=== PATIENT | female | born 1945 ===

== ENCOUNTER 2021-05-01 00:29 | Inpatient (IN) ==
[2021-05-01 01:06] VITALS: BMI 23.0
--- NOTE | 2021-05-01 01:07 | DR.SOBA ---
HPI Time Seen Time Seen by Provider: 05/01/21 00:56 HPI Comment HPI Comment: A 75 y/o female presenting this morning with SOB for months. She was admitted & treated for bibasilar pneumonia 2 months ago. Her daughter informs us that she was told by her PCP recently of having CHF. She denies c/p. COVID-19 Coronavirus symptoms experienced: Shortness of Breath Reviewed Nurses Notes Reviewed: Yes Source History Provided: Patient and Family Member Duration Duration: Months Context Onset:: With Light Exertion PE Risk Factors:: None History of:: CHF Currently on:: Neither Prehospital Care:: None PMH PMH Past Surgical History: Yes Surgical History: Hysterectomy Social History Do you use any recreational Drugs:: No ROS Review of Systems Constitutional: No Symptoms Reported Eyes: No Symptoms Reported ENTM: No Symptoms Reported Respiratoy: Short of Breath Cardiovascular: No Symptoms Reported Gastrointestinal/Abdominal: No Symptoms Reported Genitourinary: No Symptoms Reported Neurological: No Symptoms Reported Musculoskeletal: No Symptoms Reported Integumentary: No Symptoms Reported Hematologic/Lymphatic: No Symptoms Reported Endocrine: No Symptoms Reported Psychiatric: No Symptoms Reported PE Vital Signs Vitals: Temperature 97.6 F Pulse Rate 90 Respiratory Rate 16 Blood Pressure [Left Arm] 167/70 Blood Pressure 145/88 O2 Sat by Pulse Oximetry 91 General Limitations: No Limitations General Appearance: Alert, In No Apparent Distress and Anxious Head Head Exam: Normal Inspection, Atraumatic and Normocephalic Eyes Eye exam: Normal Appearance and EOMI ENT ENT Exam: Normal Exam, Normal Oropharynx, Normal External Ear Exam and Mucous Membranes Moist Neck Neck Exam: Normal Inspection, Full ROM and Trachea Midline Chest Chest Inspection: Normal Inspection and Symmetric Chest Wall Rise Respiratory Respiratory Exam: Normal Lung Sounds Bilat Cardiovascular Cardiovascular Exam: Regular Rate, Normal Rhythm, Normal Heart Sounds, +S1 and +S2 Abdominal Exam Abdominal Exam: Normal Inspection, Normal Bowel Sounds and Soft Extremities Extremities Exam: Normal Inspection and Full ROM Back Back Exam: Normal Inspection and Full ROM Neurologic Neurological Exam: Alert Psychiatric Psychiatric Exam: Normal Affect and Normal Mood Skin Skin Exam: Intact COURSE Reevaluation 1st: Improved Education/Counseling Education/Counseling: Patient, Family, Education and Counseling Educated On: Treatment, Diagnosis, Prognosis and Needs for Follow Up ROR Labs Reviewed Result Diagrams: 05/01/21 01:28 05/01/21 01:28 Laboratory: WBC 9.2 X10^3/uL (3.6-10.0) 05/01/21 01:28 RBC 4.89 X10^6/uL (3.5-5.4) 05/01/21 01:28 Hgb 14.7 g/dL (12.0-16.0) 05/01/21 01:28 Hct 44.6 % (36.0-47.0) 05/01/21 01:28 MCV 91.2 fL (80.0-100.0) 05/01/21 01:28 MCH 30.2 pg (27.0-34.0) 05/01/21 01:28 MCHC 33.1 g/dL (33.0-35.0) 05/01/21 01:28 RDW 15.3 % (11.6-16.5) 05/01/21 01:28 Plt Count 161 X10^3/uL (150.0-450.0) 05/01/21 01:28 MPV 9.5 fL (7.4-11.0) 05/01/21 01:28 Neut % (Auto) 74.7 % (42.0-75.0) 05/01/21 01:28 Lymph % (Auto) 15.4 % (21.0-51.0) L 05/01/21 01:28 [place] % (Auto) 9.2 % (0.0-13.0) 05/01/21 01:28 Eos % (Auto) 0.1 % (0.9-2.9) L 05/01/21 01:28 Baso % (Auto) 0.6 % (0.2-1.0) 05/01/21 01:28 Neut # (Auto) 6.9 x10^3/uL (2.2-4.8) H 05/01/21 01:28 Lymph # (Auto) 1.4 X10^3/uL (1.3-2.9) 05/01/21 01:28 [place] # (Auto) 0.8 x10^3/uL (0.3-0.8) 05/01/21 01:28 Eos # (Auto) 0.0 x10^3/uL (0.0-0.2) 05/01/21 01:28 Baso # (Auto) 0.1 X10^3/uL (0.0-0.1) 05/01/21 01:28 Absolute Nucleated RBC 0.1 /100WBC 05/01/21 01:28 Sample Site Rr 05/01/21 00:57 ABG pH 7.460 (7.35-7.45) H 05/01/21 00:57 ABG pCO2 32.0 mmHg (35.0-45.0) L 05/01/21 00:57 ABG pO2 90.0 mmHg (80.0-100.0) 05/01/21 00:57 ABG HCO3 22.8 mmol/L (22-26) 05/01/21 00:57 ABG O2 Saturation 97.0 % (90-100) 05/01/21 00:57 ABG Base Excess -0.4 mmol/L (-2.0-2.0) 05/01/21 00:57 Cheko Test Pos 05/01/21 00:57 A-a Gradient 70.0 mmHg 05/01/21 00:57 FiO2 28.0 05/01/21 00:57 Blood Gas Comments Marv well sw 05/01/21 00:57 Sodium 141 mmol/L (136-145) 05/01/21 01:28 Corrected Sodium 144 mmol/L (136-145) 05/01/21 01:28 Potassium 3.9 mmol/L (3.5-5.1) 05/01/21 01:28 Chloride 105 mmol/L (98-107) 05/01/21 01:28 Carbon Dioxide 23.4 mmol/L (21-32) 05/01/21 01:28 BUN 34 mg/dL (7-18) H 05/01/21 01:28 Creatinine 1.23 mg/dL (0.55-1.02) H 05/01/21 01:28 Est GFR (MDRD) Af Amer 55 (>60) L 05/01/21 01:28 Est GFR (MDRD) Non-Af 45 (>60) L 05/01/21 01:28 Glucose 205 mg/dL (65-99) H 05/01/21 01:28 Calcium 8.9 mg/dL (8.5-10.1) 05/01/21 01:28 Corrected Calcium 9.6 mg/dL (8.5-10.1) 05/01/21 01:28 Total Bilirubin 0.80 mg/dL (0.2-1.0) 05/01/21 01:28 AST 17 Units/L (15-37) 05/01/21 01:28 ALT 19 Units/L (12-78) 05/01/21 01:28 Alkaline Phosphatase 67 Units/L (46-116) 05/01/21 01:28 Creatine Kinase 58 Units/L (26-192) 05/01/21 01:28 CK-MB (CK-2) 2.8 ng/mL (0-4.0) 05/01/21 01:28 CK/CKMB % Calc 4.8 % (<4) 05/01/21 01:28 Troponin I 0.02 ng/mL (0-1.5) 05/01/21 01:28 Total Protein 6.9 g/dL (6.4-8.2) 05/01/21 01:28 Albumin 3.1 g/dL (3.4-5.0) L 05/01/21 01:28 Globulin 3.8 g/dL (2.5-4.5) 05/01/21 01:28 Albumin/Globulin Ratio 0.8 Ratio (1.1-2.1) L 05/01/21 01:28 XRAY XRAY Interpreted by: Self X-ray Results: CXR: Cardiomegaly, RML/RLL infiltrate. Radiology report is pending. EKG Rate: 92 [place]: Normal Rhythm: NSR Block: None Hypertrophy: LAE ST: Normal Opioid Opioid Risk Tool Total: 0 Total Score Risk Category: Low Risk Copyright: [facility] predicting aberrant behaviors Diagnosis Discharge Problem: Lobar pneumonia Dyspnea Qualifiers: Dyspnea type: dyspnea on exertion Qualified Code(s): R06.00 - Dyspnea, unspecified Congestive heart failure Qualifiers: Heart failure type: unspecified Heart failure chronicity: acute on chronic Qualified Code(s): I50.9 - Heart failure, unspecified ADDITIONAL NOTES Additional Notes Additional Notes: Name: FELICIA JACOBSEN AAcct#: [id number]: [id number] : 1945Sex: FLocation: ER Order Number(s): [id number](s):CHEST, 1 VIEW Ordering Physician: MONICA SMITH Primary Care: José Miguel Doherty Service Date: 05/01/21 Service Time: 56 STUDY: FRONTAL VIEW CHEST COMPARISON: February 28, 2021 HISTORY: SOB FINDINGS: Slight progressively worsening alveolar airspace disease is seen in the right lower lung zone. Tiny small left pleural effusion and small right pleural effusion remains unchanged from prior study. The heart size is within normal limits. The mediastinum is unremarkable. There is no gross evidence of pneumothorax. The trachea is midline. IMPRESSION: Slight progressively worsening alveolar airspace disease is seen in the right lower lung zone. Tiny small left pleural effusion and small right pleural effusion remains unchanged from prior study. Electronically signed by: Julian Damon (May 01, 2021 03:11:16) Report Electronically signed: 05/01/21 0313 CC: Neno Smith
[2021-05-01 01:13] LABS: ABG BASE EXCESS -0.4 mmol/L (-2.0-2.0); ABG HCO3 22.8 mmol/L (22-26)
[2021-05-01 01:14] LABS: ABG ALLEN TEST POS
[2021-05-01] MEDS ORDERED: PROVENTIL NEB TX 0.083% 2.5MG/ 3ML NEB ONE (01:39)
[2021-05-01] MEDS ORDERED: LASIX PO ONE (01:40)
[2021-05-01] MEDS ORDERED: PROVENTIL NEB TX 0.083% 2.5MG/ 3ML ONE (01:47)
[2021-05-01 01:50] LABS: BASOPHILS # (AUTO) 0.1 X10^3/uL (0.0-0.1); BASOPHILS % (AUTO) 0.6 % (0.2-1.0); EOSINOPHILS % (AUTO) 0.1 % (0.9-2.9); HEMATOCRIT 44.6 % (36.0-47.0); HEMOGLOBIN 14.7 g/dL (12.0-16.0); LYMPHOCYTES # (AUTO) 1.4 X10^3/uL (1.3-2.9); LYMPHOCYTES % (AUTO) 15.4 % (21.0-51.0); MEAN CORPUSCULAR HEMOGLOBIN 30.2 pg (27.0-34.0); MEAN CORPUSCULAR HGB CONC 33.1 g/dL (33.0-35.0); MEAN CORPUSCULAR VOLUME 91.2 fL (80.0-100.0); MEAN PLATELET VOLUME 9.5 fL (7.4-11.0); MONOCYTES # (AUTO) 0.8 x10^3/uL (0.3-0.8); MONOCYTES % (AUTO) 9.2 % (0.0-13.0); NEUTROPHILS # (AUTO) 6.9 x10^3/uL (2.2-4.8); NEUTROPHILS % (AUTO) 74.7 % (42.0-75.0); PLATELET COUNT 161 X10^3/uL (150.0-450.0); RED BLOOD COUNT 4.89 X10^6/uL (3.5-5.4); RED CELL DISTRIBUTION WIDTH 15.3 % (11.6-16.5); WHITE BLOOD COUNT 9.2 X10^3/uL (3.6-10.0)
[2021-05-01] MEDS ORDERED: LASIX ONE (02:00)
[2021-05-01 02:02] LABS: ALBUMIN 3.1 g/dL (3.4-5.0); CALCIUM 8.9 mg/dL (8.5-10.1); CARBON DIOXIDE 23.4 mmol/L (21-32); CKMB % 4.8 % (<4); COR CA(FOR HYPOALB) 9.6 mg/dL (8.5-10.1); CREATINE KINASE MB 2.8 ng/mL (0-4.0); CREATININE 1.23 mg/dL (0.55-1.02); TOTAL PROTEIN 6.9 g/dL (6.4-8.2); TROPONIN I 0.02 ng/mL (0-1.5)
[2021-05-01] MEDS ORDERED: LEVAQUIN TAB 500 MG PO STA (02:43)
[2021-05-01] MEDS ORDERED: LEVAQUIN TAB 500 MG ONE (02:44)
--- NOTE | 2021-05-01 03:13 | RAD ---
STUDY: FRONTAL VIEW CHESTCOMPARISON: February 28, 2021HISTORY: SOBFINDINGS:Slight progressively worsening alveolar airspace disease is seen in the right lower lung zone. Tiny small left pleural effusion and small right pleural effusion remains unchanged from prior study.The heart size is within normal limits.The mediastinum is unremarkable.There is no gross evidence of pneumothorax.The trachea is midline.IMPRESSION:Slight progressively worsening alveolar airspace disease is seen in the right lower lung zone. Tiny small left pleural effusion and small right pleural effusion remains unchanged from prior study.Electronically signed by: Julian Damon (May 01, 2021 03:11:16)
[2021-05-01 04:11] LABS: BILIRUBIN,URINE NEGATIVE (NEGATIVE); BLOOD/HEMOGLOBIN,URINE 4+ (NEGATIVE); GLUCOSE, URINE NEGATIVE (NEGATIVE); KETONES,URINE NEGATIVE (NEGATIVE); LEUKOCYTE ESTERASE ,URINE NEGATIVE (NEGATIVE); NITRITES,URINE NEGATIVE (NEGATIVE); PROTEIN,URINE 2+ (NEGATIVE); UROBILINOGEN,URINE NORMAL (NORMAL)
[2021-05-01 04:15] LABS: APPEARANCE,URINE HAZY (CLEAR); COLOR,URINE YELLOW (YELLOW)
[2021-05-01] MEDS ORDERED: SALINE 3% 15 ML NEB TX ONE (04:34)
[2021-05-01] MEDS ORDERED: XOPENEX 1.25 MG/3 ML NEBULE NEB ONE (04:57)
[2021-05-01] MEDS ORDERED: NS 1/2 1,000 ML IV 1,000 ML IV SCH (05:00)
[2021-05-01] MEDS ORDERED: TYLENOL 325 MG TAB PO PRN (05:00)
[2021-05-01] MEDS ORDERED: NICOTINE PATCH TD ONE (05:18)
[2021-05-01] MEDS ORDERED: NS 1/2 1,000 ML IV 1,000 ML IV ONE (05:19)
[2021-05-01 05:36] LABS: BASOPHILS % (AUTO) 0.4 % (0.2-1.0); EOSINOPHILS % (AUTO) 0.4 % (0.9-2.9); HEMATOCRIT 45.8 % (36.0-47.0); HEMOGLOBIN 14.8 g/dL (12.0-16.0); LYMPHOCYTES # (AUTO) 1.2 X10^3/uL (1.3-2.9); LYMPHOCYTES % (AUTO) 11.9 % (21.0-51.0); MEAN CORPUSCULAR HEMOGLOBIN 29.6 pg (27.0-34.0); MEAN CORPUSCULAR HGB CONC 32.4 g/dL (33.0-35.0); MEAN CORPUSCULAR VOLUME 91.3 fL (80.0-100.0); MEAN PLATELET VOLUME 9.3 fL (7.4-11.0); MONOCYTES # (AUTO) 0.8 x10^3/uL (0.3-0.8); MONOCYTES % (AUTO) 8.1 % (0.0-13.0); NEUTROPHILS # (AUTO) 7.9 x10^3/uL (2.2-4.8); NEUTROPHILS % (AUTO) 79.2 % (42.0-75.0); PLATELET COUNT 166 X10^3/uL (150.0-450.0); RED BLOOD COUNT 5.02 X10^6/uL (3.5-5.4); RED CELL DISTRIBUTION WIDTH 15.7 % (11.6-16.5); WHITE BLOOD COUNT 9.9 X10^3/uL (3.6-10.0)
[2021-05-01] MEDS: DUONEB 0.5 MG/3 MG (3 mL) NEB SCH ×3 (05:40→17:10)
[2021-05-01 05:44] LABS: ALBUMIN 3.2 g/dL (3.4-5.0); CALCIUM 8.9 mg/dL (8.5-10.1); CARBON DIOXIDE 27.1 mmol/L (21-32); COR CA(FOR HYPOALB) 9.5 mg/dL (8.5-10.1); CREATININE 1.28 mg/dL (0.55-1.02); TOTAL PROTEIN 7.2 g/dL (6.4-8.2)
[2021-05-01] MEDS ORDERED: SALINE 3% 15 ML NEB TX NEB ONE (05:45)
[2021-05-01] MEDS: NICOTINE PATCH TD SCH (05:52)
[2021-05-01] MEDS ORDERED: LEVAQUIN TAB 500 MG PO SCH (09:00)
[2021-05-01 09:55] LABS: CKMB % 6.4 % (<4); CREATINE KINASE 55 Units/L (26-192); CREATINE KINASE MB 3.5 ng/mL (0-4.0); TROPONIN I < 0.02 ng/mL (0-1.5)
[2021-05-01] MEDS: K-DUR TAB 20 MEQ PO SCH (10:00)
[2021-05-01] MEDS: VSL#3 PO SCH (10:00)
[2021-05-01] MEDS: LASIX IVP SCH (10:00)
--- NOTE | 2021-05-01 10:19 | CT ---
HISTORYCONFUSION, HALLUCINATIONS, LETHARGYSTUDYBRAIN W/O CONCOMPARISONNoneTECHNIQUEMultiple CT axial images of the head were obtained without IV contrast. Coronal and sagittal images were reconstructed. Dose reduction techniques included Automated Exposure Control (AEC) and adjustment of mA and kV.FINDINGSAge-related findings include central and cortical atrophy with areas of low density in the periventricular white matter compatible with micro-ischemic changes.Otherwise mcnamara and white matter have normal differentiation. There is no mass, shift, or hemorrhage. Cerebellar tonsils are at an appropriate level.No fluid in the sinuses or mucosal thickening to suggest sinusitis. There is no mastoid effusion.IMPRESSION1. No acute findingElectronically signed by: Brenden Reddy (May 01, 2021 10:17:22)
[2021-05-01] MEDS: ROBITUSSIN DM PO SCH ×4 (11:16→20:23)
--- NOTE | 2021-05-01 13:17 | DR.H&P ---
H&P History & Physical for Day of: H&P Date: 05/01/21 Chief Complaint Chief Complaint: worsening dyspnea, confusion Allergies Allergies Allergy/AdvReac Type Severity Reaction Status Date / Time No Known Drug Allergies Allergy Verified 02/28/21 23:04 History of Present Illness History of Present Illness: Ms. Davila is a 75y/o female who was recently seen in clinic 2 days ago to establish care. She has not seen a PCP in over 10 years. Outpatient work up was ordered to address fluid overload and leg edema. Her prescription for lasix was sent to the pharmacy but patient did not pick it up. Patient states she felt very SOB yesterday and had to be brought to the ER. Daughter states patient was also confused yesterday and does not recall her coming to the house. Denies any fall or injuries. She is awake and alert this morning. She is on 2L O2. ED work-up - Labs and imaging reviewed. Patient was admitted for acute CHF exacerbation and pneumonia. She was given IV lasix and levaquin along with nebs. Plan: Continue IV lasix and Levaquin. Continue nebs. Strict I&Os. Daily weights. Will repeat another cardiac profile. Order Echo and b/l LE U/S to rule out PE. Patient has been immobile for a while. Order CT-head due to confusion. Change diet to cardiac. Add SSI for hyperglycemia. Add Lovenox for DVT PPx. Wean O2 as tolerated. PT/OT as tolerated. Past Medical History Past Medical History: CHF, COPD and Diabetes Past Surgical History Surgical History: Hysterectomy Family History Family Medical History: Diabetes Mellitus, Cancer, IA and Hypertension Social History Does patient currently use any type of tobacco product: Yes Have you used tobacco products in the last 12 months: Yes Type of Tobacco Use: Cigarettes Packs per day or dips/chews per day: 1 Does any household member use tobacco: No Alcohol Use: None Drug Use: None Prescription drug monitoring program results: PDMP reviewed and no concerns identified Medications Home Medications: No Known Drug Allergies Allergy (Verified 02/28/21 23:04) CONTINUE taking the following medications furosemide 40 mg PO DAILY 05/01/21 [History] pantoprazole 40 mg PO DAILY 05/01/21 [History] Labs Result Diagrams: 05/01/21 05:20 05/01/21 05:20 Labs: Laboratory WBC 9.9 X10^3/uL (3.6-10.0) 05/01/21 05:20 RBC 5.02 X10^6/uL (3.5-5.4) 05/01/21 05:20 Hgb 14.8 g/dL (12.0-16.0) 05/01/21 05:20 Hct 45.8 % (36.0-47.0) 05/01/21 05:20 MCV 91.3 fL (80.0-100.0) 05/01/21 05:20 MCH 29.6 pg (27.0-34.0) 05/01/21 05:20 MCHC 32.4 g/dL (33.0-35.0) L 05/01/21 05:20 RDW 15.7 % (11.6-16.5) 05/01/21 05:20 Plt Count 166 X10^3/uL (150.0-450.0) 05/01/21 05:20 MPV 9.3 fL (7.4-11.0) 05/01/21 05:20 Neut % (Auto) 79.2 % (42.0-75.0) H 05/01/21 05:20 Lymph % (Auto) 11.9 % (21.0-51.0) L 05/01/21 05:20 [place] % (Auto) 8.1 % (0.0-13.0) 05/01/21 05:20 Eos % (Auto) 0.4 % (0.9-2.9) L 05/01/21 05:20 Baso % (Auto) 0.4 % (0.2-1.0) 05/01/21 05:20 Neut # (Auto) 7.9 x10^3/uL (2.2-4.8) H 05/01/21 05:20 Lymph # (Auto) 1.2 X10^3/uL (1.3-2.9) L 05/01/21 05:20 [place] # (Auto) 0.8 x10^3/uL (0.3-0.8) 05/01/21 05:20 Eos # (Auto) 0.0 x10^3/uL (0.0-0.2) 05/01/21 05:20 Baso # (Auto) 0.0 X10^3/uL (0.0-0.1) 05/01/21 05:20 Absolute Nucleated RBC 0.1 /100WBC 05/01/21 05:20 Sample Site Rr 05/01/21 00:57 ABG pH 7.460 (7.35-7.45) H 05/01/21 00:57 ABG pCO2 32.0 mmHg (35.0-45.0) L 05/01/21 00:57 ABG pO2 90.0 mmHg (80.0-100.0) 05/01/21 00:57 ABG HCO3 22.8 mmol/L (22-26) 05/01/21 00:57 ABG O2 Saturation 97.0 % (90-100) 05/01/21 00:57 ABG Base Excess -0.4 mmol/L (-2.0-2.0) 05/01/21 00:57 Cheko Test Pos 05/01/21 00:57 A-a Gradient 70.0 mmHg 05/01/21 00:57 FiO2 28.0 05/01/21 00:57 Blood Gas Comments Marv well sw 05/01/21 00:57 Sodium 141 mmol/L (136-145) 05/01/21 05:20 Corrected Sodium 142 mmol/L (136-145) 05/01/21 05:20 Potassium 4.0 mmol/L (3.5-5.1) 05/01/21 05:20 Chloride 104 mmol/L (98-107) 05/01/21 05:20 Carbon Dioxide 27.1 mmol/L (21-32) 05/01/21 05:20 BUN 33 mg/dL (7-18) H 05/01/21 05:20 Creatinine 1.28 mg/dL (0.55-1.02) H 05/01/21 05:20 Est GFR (MDRD) Af Amer 53 (>60) L 05/01/21 05:20 Est GFR (MDRD) Non-Af 43 (>60) L 05/01/21 05:20 Glucose 157 mg/dL (65-99) H 05/01/21 05:20 POC Glucose (mg/dL) 188 mg/dL (65-99) H 05/01/21 12:12 Calcium 8.9 mg/dL (8.5-10.1) 05/01/21 05:20 Corrected Calcium 9.5 mg/dL (8.5-10.1) 05/01/21 05:20 Total Bilirubin 1.00 mg/dL (0.2-1.0) 05/01/21 05:20 AST 18 Units/L (15-37) 05/01/21 05:20 ALT 18 Units/L (12-78) 05/01/21 05:20 Alkaline Phosphatase 71 Units/L (46-116) 05/01/21 05:20 Creatine Kinase 55 Units/L (26-192) 05/01/21 09:22 CK-MB (CK-2) 3.5 ng/mL (0-4.0) 05/01/21 09:22 CK/CKMB % Calc 6.4 % (<4) 05/01/21 09:22 Troponin I < 0.02 ng/mL (0-1.5) 05/01/21 09:22 Total Protein 7.2 g/dL (6.4-8.2) 05/01/21 05:20 Albumin 3.2 g/dL (3.4-5.0) L 05/01/21 05:20 Globulin 4.0 g/dL (2.5-4.5) 05/01/21 05:20 Albumin/Globulin Ratio 0.8 Ratio (1.1-2.1) L 05/01/21 05:20 Specimen Type Catherized urine 05/01/21 03:30 Urine Color Yellow (YELLOW) 05/01/21 03:30 Urine Appearance Hazy (CLEAR) 05/01/21 03:30 Urine pH 5.0 (5.0 - 8.0) 05/01/21 03:30 Ur Specific [place] 1.015 (1.000-1.030) 05/01/21 03:30 Urine Protein 2+ (NEGATIVE) 05/01/21 03:30 Urine Glucose (UA) Negative (NEGATIVE) 05/01/21 03:30 Urine Ketones Negative (NEGATIVE) 05/01/21 03:30 Urine Occult Blood 4+ (NEGATIVE) 05/01/21 03:30 Urine Nitrite Negative (NEGATIVE) 05/01/21 03:30 Urine Bilirubin Negative (NEGATIVE) 05/01/21 03:30 Urine Urobilinogen Normal (NORMAL) 05/01/21 03:30 Ur Leukocyte Esterase Negative (NEGATIVE) 05/01/21 03:30 SARS CoV-2 RNA Rapid AMMON Negative (NEGATIVE) 05/01/21 03:35 Review of Systems Constitutional: Weakness and Malaise Eyes: No Symptoms Reported ENT: No Symptoms Reported Respiratory: Cough, Shortness of Breath and SOB with Excertion Cardiovascular: Edema Gastrointestinal: No Symptoms Reported Genitourinary: No Symptoms Reported Musculoskeletal: Leg Pain Skin: No Symptoms Reported Neurological: Confusion Physical Exam Vital Signs: Temperature 97.8 F Pulse Rate [Left Radial] 95 Pulse Rate 84 Respiratory Rate 26 Blood Pressure [Left Arm] 128/60 Blood Pressure 138/85 O2 Sat by Pulse Oximetry 92 Oriented: Normal Eyes: Normal Ear: Normal Nose: Normal Throat: Normal Respiratory: Diminished Throughout, RLL Rales and LLL Rales Cardiovascular: Normal and Edema (b/l LE 2+ pitting edema, erythematous ) Auscultation: Bowel Sounds: Normal Palpation: Normal Tenderness: Normal Skin: Wound Psychiatric: Normal Mood Description: Calm Affect: Normal Speech Pattern: Clear and Appropriate Assessment/Plan (1) Lobar pneumonia: Status: Acute (2) Acute exacerbation of CHF (congestive heart failure): Qualifiers: Heart failure type: unspecified Qualified Code(s): I50.9 - Heart failure, unspecified Status: Acute (3) Leg swelling: Status: Acute (4) Immobility: Status: Acute (5) Confusion: Status: Acute (6) Diabetes: Qualifiers: Diabetes mellitus complication status: with other specified complication 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
[2021-05-01] MEDS: LOVENOX INJ 30 MG SYR SC SCH (13:35)
--- NOTE | 2021-05-01 14:06 | VAS ---
HISTORYLeg edema and rednessSTUDYDuplex venous ultrasound of the bilateral lower extremitiesCOMPARISONNoneTECHNIQUEMultip le mcnamara scale and color flow Doppler images of the deep venous system were obtained of the right and left lower extremity.FINDINGSThe deep venous system of the right and left lower extremities were evaluated from the level of the common femoral vein through the posterior tibial vein. Normal color flow and augmentation can be observed. In addition, normal compression is seen throughout the deep venous system.IMPRESSIONNegative for DVT.Electronically signed by: Butch Alvarez (May 01, 2021 14:03:18)
[2021-05-01] MEDS: LIPITOR TAB 40 MG PO SCH (20:23)
[2021-05-01] MEDS: NovoLIN R (or HumuLIN R) SC PRN (20:24)
[2021-05-02] MEDS: DUONEB 0.5 MG/3 MG (3 mL) NEB SCH ×4 (00:50→17:05)
[2021-05-02 05:00] LABS: BASOPHILS % (AUTO) 0.3 % (0.2-1.0); EOSINOPHILS # (AUTO) 0.1 x10^3/uL (0.0-0.2); EOSINOPHILS % (AUTO) 1.7 % (0.9-2.9); HEMATOCRIT 42.5 % (36.0-47.0); HEMOGLOBIN 13.7 g/dL (12.0-16.0); LYMPHOCYTES # (AUTO) 1.4 X10^3/uL (1.3-2.9); LYMPHOCYTES % (AUTO) 17.3 % (21.0-51.0); MEAN CORPUSCULAR HEMOGLOBIN 29.6 pg (27.0-34.0); MEAN CORPUSCULAR HGB CONC 32.2 g/dL (33.0-35.0); MEAN CORPUSCULAR VOLUME 92.2 fL (80.0-100.0); MEAN PLATELET VOLUME 9.6 fL (7.4-11.0); MONOCYTES # (AUTO) 0.7 x10^3/uL (0.3-0.8); MONOCYTES % (AUTO) 8.9 % (0.0-13.0); NEUTROPHILS # (AUTO) 5.9 x10^3/uL (2.2-4.8); NEUTROPHILS % (AUTO) 71.8 % (42.0-75.0); PLATELET COUNT 152 X10^3/uL (150.0-450.0); RED BLOOD COUNT 4.61 X10^6/uL (3.5-5.4); RED CELL DISTRIBUTION WIDTH 15.4 % (11.6-16.5); WHITE BLOOD COUNT 8.3 X10^3/uL (3.6-10.0)
[2021-05-02 05:07] LABS: BLOOD UREA NITROGEN 32 mg/dL (7-18); CARBON DIOXIDE 28.5 mmol/L (21-32); CHLORIDE 106 mmol/L (98-107); COR NA(FOR HYPERGLY) 143 mmol/L (136-145); CREATININE 1.08 mg/dL (0.55-1.02); MAGNESIUM 2.3 mg/dL (1.7-2.9); SODIUM 141 mmol/L (136-145); eGFR NON BLACK RACES 53 (>60)
[2021-05-02] MEDS: GLUCOPHAGE XR 24-HR PO SCH (09:34)
[2021-05-02] MEDS: ASPIRIN EC 81 MG PO SCH (09:34)
[2021-05-02] MEDS: NICOTINE PATCH TD SCH (09:35)
[2021-05-02] MEDS: K-DUR TAB 20 MEQ PO SCH (09:35)
[2021-05-02] MEDS: LOVENOX INJ 30 MG SYR SC SCH (09:35)
[2021-05-02] MEDS: LASIX IVP SCH (09:35)
[2021-05-02] MEDS: VSL#3 PO SCH (09:36)
[2021-05-02] MEDS: ROBITUSSIN DM PO SCH ×4 (09:36→21:15)
--- NOTE | 2021-05-02 10:54 | PCM.PROG ---
Progress Note Progress Note for Day of Date of Exam: 05/02/21 Subjective Subjective: Patient seen at bedside, no acute overnight events. She states she feels better. She is still on 2L NC. She does not recall working with PT yesterday. She did not get out of bed. Patient is extremely weak and not able to ambulate much. She will likely need rehab placement. Patient understands and willing to go to rehab if needed. Labs reviewed Imaging reviewed: CT-head: no acute process, chronic micro-ischemic changes. U/S BL LE: (-) for DVT Echo: EF 40% Plan: wean O2 as tolerated, PT/OT for a complete assessment. Initiate bladder training to remove herrera. Continue IV lasix and abx. Continue nebs. Add metformin 500 mg daily and metoprolol succinate 25 mg daily. Strict I/Os, daily weight. CM to work on placement as needed. Monitor AM labs and imaging. Past Medical Family Social History Past Med/Fam/Surg Hx: No changes since H&P Allergies: Allergies No Known Drug Allergies Allergy (Verified 02/28/21 23:04) Vital Signs and I&O's Vital Signs: Temperature 98.4 F Pulse Rate [Left Radial] 93 Pulse Rate 97 Respiratory Rate 20 Blood Pressure [Left Arm] 138/61 Blood Pressure 138/85 O2 Sat by Pulse Oximetry 95 Intake and Output: Intake & Output 04/29/21 04/30/21 05/01/21 05/02/21 23:59 23:59 23:59 23:59 Intake Total 615 / 615 815 / 815 Output Total 2600 / 2600 1150 / 1150 Balance -1984 / -1984 -335 / -335 Physical Exam Oriented: Normal Eyes: Normal Ear: Normal Nose: Normal Throat: Normal Respiratory: Generalized and Diminished Cardiovascular: Normal and Edema (improved LE edema ) Auscultation: Bowel Sounds: Normal Tenderness: Normal Skin: Wound Musculoskeletal: Normal Psychiatric: Normal Mood Description: Calm Affect: Normal Speech Pattern: Clear and Appropriate Laboratory and Diagnostics Result Diagrams: 05/02/21 04:00 05/02/21 04:00 Labs: 05/01/21 03:30 Urine,Clean Catch Urine Culture - Final Laboratory WBC 8.3 X10^3/uL (3.6-10.0) 05/02/21 04:00 RBC 4.61 X10^6/uL (3.5-5.4) 05/02/21 04:00 Hgb 13.7 g/dL (12.0-16.0) 05/02/21 04:00 Hct 42.5 % (36.0-47.0) 05/02/21 04:00 MCV 92.2 fL (80.0-100.0) 05/02/21 04:00 MCH 29.6 pg (27.0-34.0) 05/02/21 04:00 MCHC 32.2 g/dL (33.0-35.0) L 05/02/21 04:00 RDW 15.4 % (11.6-16.5) 05/02/21 04:00 Plt Count 152 X10^3/uL (150.0-450.0) 05/02/21 04:00 MPV 9.6 fL (7.4-11.0) 05/02/21 04:00 Neut % (Auto) 71.8 % (42.0-75.0) 05/02/21 04:00 Lymph % (Auto) 17.3 % (21.0-51.0) L 05/02/21 04:00 [place] % (Auto) 8.9 % (0.0-13.0) 05/02/21 04:00 Eos % (Auto) 1.7 % (0.9-2.9) 05/02/21 04:00 Baso % (Auto) 0.3 % (0.2-1.0) 05/02/21 04:00 Neut # (Auto) 5.9 x10^3/uL (2.2-4.8) H 05/02/21 04:00 Lymph # (Auto) 1.4 X10^3/uL (1.3-2.9) 05/02/21 04:00 [place] # (Auto) 0.7 x10^3/uL (0.3-0.8) 05/02/21 04:00 Eos # (Auto) 0.1 x10^3/uL (0.0-0.2) 05/02/21 04:00 Baso # (Auto) 0.0 X10^3/uL (0.0-0.1) 05/02/21 04:00 Absolute Nucleated RBC 0.2 /100WBC 05/02/21 04:00 Sample Site Rr 05/01/21 00:57 ABG pH 7.460 (7.35-7.45) H 05/01/21 00:57 ABG pCO2 32.0 mmHg (35.0-45.0) L 05/01/21 00:57 ABG pO2 90.0 mmHg (80.0-100.0) 05/01/21 00:57 ABG HCO3 22.8 mmol/L (22-26) 05/01/21 00:57 ABG O2 Saturation 97.0 % (90-100) 05/01/21 00:57 ABG Base Excess -0.4 mmol/L (-2.0-2.0) 05/01/21 00:57 Cheko Test Pos 05/01/21 00:57 A-a Gradient 70.0 mmHg 05/01/21 00:57 FiO2 28.0 05/01/21 00:57 Blood Gas Comments Marv well sw 05/01/21 00:57 Sodium 141 mmol/L (136-145) 05/02/21 04:00 Corrected Sodium 143 mmol/L (136-145) 05/02/21 04:00 Potassium 3.6 mmol/L (3.5-5.1) 05/02/21 04:00 Chloride 106 mmol/L (98-107) 05/02/21 04:00 Carbon Dioxide 28.5 mmol/L (21-32) 05/02/21 04:00 BUN 32 mg/dL (7-18) H 05/02/21 04:00 Creatinine 1.08 mg/dL (0.55-1.02) H 05/02/21 04:00 Est GFR (MDRD) Af Amer > 60 (>60) 05/02/21 04:00 Est GFR (MDRD) Non-Af 53 (>60) L 05/02/21 04:00 Glucose 176 mg/dL (65-99) H 05/02/21 04:00 POC Glucose (mg/dL) 219 mg/dL (65-99) H 05/01/21 19:57 Calcium 8.0 mg/dL (8.5-10.1) L 05/02/21 04:00 Corrected Calcium 9.5 mg/dL (8.5-10.1) 05/01/21 05:20 Magnesium 2.3 mg/dL (1.7-2.9) 05/02/21 04:00 Total Bilirubin 1.00 mg/dL (0.2-1.0) 05/01/21 05:20 AST 18 Units/L (15-37) 05/01/21 05:20 ALT 18 Units/L (12-78) 05/01/21 05:20 Alkaline Phosphatase 71 Units/L (46-116) 05/01/21 05:20 Creatine Kinase 55 Units/L (26-192) 05/01/21 09:22 CK-MB (CK-2) 3.5 ng/mL (0-4.0) 05/01/21 09:22 CK/CKMB % Calc 6.4 % (<4) 05/01/21 09:22 Troponin I < 0.02 ng/mL (0-1.5) 05/01/21 09:22 Total Protein 7.2 g/dL (6.4-8.2) 05/01/21 05:20 Albumin 3.2 g/dL (3.4-5.0) L 05/01/21 05:20 Globulin 4.0 g/dL (2.5-4.5) 05/01/21 05:20 Albumin/Globulin Ratio 0.8 Ratio (1.1-2.1) L 05/01/21 05:20 Specimen Type Catherized urine 05/01/21 03:30 Urine Color Yellow (YELLOW) 05/01/21 03:30 Urine Appearance Hazy (CLEAR) 05/01/21 03:30 Urine pH 5.0 (5.0 - 8.0) 05/01/21 03:30 Ur Specific [place] 1.015 (1.000-1.030) 05/01/21 03:30 Urine Protein 2+ (NEGATIVE) 05/01/21 03:30 Urine Glucose (UA) Negative (NEGATIVE) 05/01/21 03:30 Urine Ketones Negative (NEGATIVE) 05/01/21 03:30 Urine Occult Blood 4+ (NEGATIVE) 05/01/21 03:30 Urine Nitrite Negative (NEGATIVE) 05/01/21 03:30 Urine Bilirubin Negative (NEGATIVE) 05/01/21 03:30 Urine Urobilinogen Normal (NORMAL) 05/01/21 03:30 Ur Leukocyte Esterase Negative (NEGATIVE) 05/01/21 03:30 SARS CoV-2 RNA Rapid AMMON Negative (NEGATIVE) 05/01/21 03:35 Plan (1) Lobar pneumonia: Status: Acute (2) Acute exacerbation of CHF (congestive heart failure): Status: Acute Qualifiers: Heart failure type: unspecified Qualified Code(s): I50.9 - Heart failure, unspecified (3) Leg swelling: Status: Acute (4) Immobility: Status: Acute (5) Confusion: Status: Acute (6) Diabetes: Status: Acute Qualifiers: Diabetes mellitus complication status: with other specified complication 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
[2021-05-02] MEDS: TOPROL XL PO SCH (11:15)
[2021-05-02] MEDS: LIPITOR TAB 40 MG PO SCH (21:15)
[2021-05-02] MEDS: LEVAQUIN PREMIX IV 750 MG 750 MG/150 ML BAG IV SCH (21:15)
[2021-05-03] MEDS: DUONEB 0.5 MG/3 MG (3 mL) NEB SCH ×4 (00:17→17:21)
--- NOTE | 2021-05-03 06:18 | RAD ---
HISTORYSOB HX: TIA, CHF, COPD SX: HYSTERECTOMYSTUDYCHEST, 1 [id number] trachea is midline. There is stable moderate cardiomegaly.There is persistent bibasal radiopacities right more than left with effacement of the diaphragms. The right midlung zone radiopacities are slightly denser than on prior study. There is no evidence of pneumothorax with some skin folds in the posterior aspect of the upper lobes. Possible right trace effusion.IMPRESSIONStable moderate cardiomegaly. Persistent bibasal radiopacities right more than left with increase density in the radiopacity in the right midlung zone.Electronically signed by: Bethany Avila (May 03, 2021 06:17:18)
[2021-05-03 06:38] LABS: BASOPHILS % (AUTO) 0.4 % (0.2-1.0); EOSINOPHILS # (AUTO) 0.1 x10^3/uL (0.0-0.2); EOSINOPHILS % (AUTO) 1.5 % (0.9-2.9); HEMATOCRIT 41.3 % (36.0-47.0); HEMOGLOBIN 13.6 g/dL (12.0-16.0); LYMPHOCYTES # (AUTO) 1.2 X10^3/uL (1.3-2.9); LYMPHOCYTES % (AUTO) 15.4 % (21.0-51.0); MEAN CORPUSCULAR HEMOGLOBIN 29.8 pg (27.0-34.0); MEAN CORPUSCULAR HGB CONC 32.8 g/dL (33.0-35.0); MEAN CORPUSCULAR VOLUME 90.9 fL (80.0-100.0); MEAN PLATELET VOLUME 9.4 fL (7.4-11.0); MONOCYTES # (AUTO) 0.7 x10^3/uL (0.3-0.8); MONOCYTES % (AUTO) 9.6 % (0.0-13.0); NEUTROPHILS # (AUTO) 5.5 x10^3/uL (2.2-4.8); NEUTROPHILS % (AUTO) 73.1 % (42.0-75.0); PLATELET COUNT 158 X10^3/uL (150.0-450.0); RED BLOOD COUNT 4.55 X10^6/uL (3.5-5.4); RED CELL DISTRIBUTION WIDTH 15.2 % (11.6-16.5); WHITE BLOOD COUNT 7.5 X10^3/uL (3.6-10.0)
[2021-05-03 06:49] LABS: ALANINE AMINOTRANSFERASE 21 Units/L (12-78); ALBUMIN 2.6 g/dL (3.4-5.0); ALKALINE PHOSPHATASE 70 Units/L (46-116); ASPARTATE AMINO TRANSFERASE 16 Units/L (15-37); BLOOD UREA NITROGEN 27 mg/dL (7-18); CHLORIDE 105 mmol/L (98-107); COR CA(FOR HYPOALB) 9.1 mg/dL (8.5-10.1); COR NA(FOR HYPERGLY) 142 mmol/L (136-145); CREATININE 0.93 mg/dL (0.55-1.02); SODIUM 141 mmol/L (136-145); TOTAL PROTEIN 6.3 g/dL (6.4-8.2); eGFR NON BLACK RACES > 60 (>60)
[2021-05-03] MEDS: LASIX IVP SCH (09:00)
[2021-05-03] MEDS: K-DUR TAB 20 MEQ PO SCH (09:00)
[2021-05-03] MEDS: GLUCOPHAGE XR 24-HR PO SCH (09:00)
[2021-05-03] MEDS: ASPIRIN EC 81 MG PO SCH (09:00)
[2021-05-03] MEDS: VSL#3 PO SCH (09:01)
[2021-05-03] MEDS: TOPROL XL PO SCH (09:01)
[2021-05-03] MEDS: ROBITUSSIN DM PO SCH ×5 (09:01→20:41)
[2021-05-03] MEDS: NICOTINE PATCH TD SCH ×2 (09:01→09:30)
[2021-05-03] MEDS: LOVENOX INJ 30 MG SYR SC SCH (09:23)
--- NOTE | 2021-05-03 10:41 | PCM.PROG ---
Progress Note - Progress Note for Day of Date of Exam: 05/03/21 - Subjective Subjective: IS A 75 YEAR OLD W/F PATIENT OF . SHE WAS ADMITTED ON 05/01 FOR TREATMENT OF PNEUMONIA AND ACUTE EXACERBATION OF CHF. SHE HAS A HX OF CVA, COPD, DM II. TODAY, SHE IS ALERT AND ORIENTED, SITTING UP IN BED ON MORNING ROUNDS. SHE CONTINUES WITH COMPLAINTS OF WEAKNESS AND SHORTNESS OF BREATH. ON EXAMINATION, HEART IS REGULAR IN RATE AND RHYTHM. BILATERAL LUNGS ARE NOTED WITH DIMINISHED LUNG SOUNDS THROUGHOUT. ABDOMEN IS ROUND, SOFT, AND NON-TENDER WITH NORMAL BOWEL SOUNDS NOTED IN ALL QUADRANTS. TRACE BLE EDEMA NOTED. HER VITALS THIS MORNING ARE: 97.7-86-20-97%-137/60. LABS WERE OBTAINED. ABNORMAL LAB VALUES INCLUDE THE FOLLOWING: BUN 27, GLUCOSE 124, CALCIUM 8.0, T OTAL PROTEIN 6.3, ALBUMIN 2.6. CHEST XRAY REVEALED: Stable moderate cardiomegaly. Persistent bibasal radiopacities right more than left with increase density in the radiopacity in the right midlung zone. WE WILL CONTINUE WITH IV ANTIBIOTICS, NEBULIZER TREATMENTS, LOVENOX, BLOOD GLUCOSE CONTROL, AND CURRENT PLAN OF CARE TODAY. OTHERWISE, WE PLAN TO FOLLOW UP WITH AM LABS AND CONTINUE TO MONITOR. TIME SPENT ON CLINICAL ASSESSMENT, REVIEWING LABS AND IMAGING, DECISION MAKING, AND DOCUMENTATION GREATER THAN 45 MINUTES. - Past Medical Family Social History Past Med/Fam/Surg Hx: No changes since H&P Allergies: Allergies No Known Drug Allergies Allergy (Verified 02/28/21 23:04) - Review of Systems ROS: No change since H&P - Vital Signs and I&O's Vital Signs: Temperature 97.7 F Pulse Rate [Left Radial] 86 Pulse Rate 76 Respiratory Rate 20 Blood Pressure [Left Arm] 137/60 Blood Pressure 138/85 O2 Sat by Pulse Oximetry 97 Intake and Output: Intake & Output 04/30/21 05/01/21 05/02/21 05/03/21 11:59 11:59 11:59 11:59 Intake Total 125 / 125 1305 / 1305 1630 / 1630 Output Total 800 / 800 2950 / 2950 2800 / 2800 Balance -675 / -675 -1645 / -1645 -1170 / -1170 - Physical Exam Oriented: Normal Eyes: Normal Ear: Normal Nose: Normal Throat: Normal Respiratory: Generalized, Diminished Cardiovascular: Normal, Edema (improved LE edema) Auscultation: Bowel Sounds: Normal Palpation: Normal Tenderness: Normal Skin: Wound Musculoskeletal: Normal Psychiatric: Normal Mood Description: Calm Affect: Normal Speech Pattern: Clear, Appropriate - Laboratory and Diagnostics Result Diagrams: 05/03/21 05:38 05/03/21 05:38 Labs: 05/01/21 03:30 Urine,Clean Catch Urine Culture - Final Laboratory WBC 7.5 X10^3/uL (3.6-10.0) 05/03/21 05:38 RBC 4.55 X10^6/uL (3.5-5.4) 05/03/21 05:38 Hgb 13.6 g/dL (12.0-16.0) 05/03/21 05:38 Hct 41.3 % (36.0-47.0) 05/03/21 05:38 MCV 90.9 fL (80.0-100.0) 05/03/21 05:38 MCH 29.8 pg (27.0-34.0) 05/03/21 05:38 MCHC 32.8 g/dL (33.0-35.0) L 05/03/21 05:38 RDW 15.2 % (11.6-16.5) 05/03/21 05:38 Plt Count 158 X10^3/uL (150.0-450.0) 05/03/21 05:38 MPV 9.4 fL (7.4-11.0) 05/03/21 05:38 Neut % (Auto) 73.1 % (42.0-75.0) 05/03/21 05:38 Lymph % (Auto) 15.4 % (21.0-51.0) L 05/03/21 05:38 [place] % (Auto) 9.6 % (0.0-13.0) 05/03/21 05:38 Eos % (Auto) 1.5 % (0.9-2.9) 05/03/21 05:38 Baso % (Auto) 0.4 % (0.2-1.0) 05/03/21 05:38 Neut # (Auto) 5.5 x10^3/uL (2.2-4.8) H 05/03/21 05:38 Lymph # (Auto) 1.2 X10^3/uL (1.3-2.9) L 05/03/21 05:38 [place] # (Auto) 0.7 x10^3/uL (0.3-0.8) 05/03/21 05:38 Eos # (Auto) 0.1 x10^3/uL (0.0-0.2) 05/03/21 05:38 Baso # (Auto) 0.0 X10^3/uL (0.0-0.1) 05/03/21 05:38 Absolute Nucleated RBC 0.1 /100WBC 05/03/21 05:38 Sample Site Rr 05/01/21 00:57 ABG pH 7.460 (7.35-7.45) H 05/01/21 00:57 ABG pCO2 32.0 mmHg (35.0-45.0) L 05/01/21 00:57 ABG pO2 90.0 mmHg (80.0-100.0) 05/01/21 00:57 ABG HCO3 22.8 mmol/L (22-26) 05/01/21 00:57 ABG O2 Saturation 97.0 % (90-100) 05/01/21 00:57 ABG Base Excess -0.4 mmol/L (-2.0-2.0) 05/01/21 00:57 Cheko Test Pos 05/01/21 00:57 A-a Gradient 70.0 mmHg 05/01/21 00:57 FiO2 28.0 05/01/21 00:57 Blood Gas Comments Marv well sw 05/01/21 00:57 Sodium 141 mmol/L (136-145) 05/03/21 05:38 Corrected Sodium 142 mmol/L (136-145) 05/03/21 05:38 Potassium 3.8 mmol/L (3.5-5.1) 05/03/21 05:38 Chloride 105 mmol/L (98-107) 05/03/21 05:38 Carbon Dioxide 31.0 mmol/L (21-32) 05/03/21 05:38 BUN 27 mg/dL (7-18) H 05/03/21 05:38 Creatinine 0.93 mg/dL (0.55-1.02) 05/03/21 05:38 Est GFR (MDRD) Af Amer > 60 (>60) 05/03/21 05:38 Est GFR (MDRD) Non-Af > 60 (>60) 05/03/21 05:38 Glucose 124 mg/dL (65-99) H 05/03/21 05:38 POC Glucose (mg/dL) 130 mg/dL (65-99) H 05/03/21 05:13 Calcium 8.0 mg/dL (8.5-10.1) L 05/03/21 05:38 Corrected Calcium 9.1 mg/dL (8.5-10.1) 05/03/21 05:38 Magnesium 2.3 mg/dL (1.7-2.9) 05/02/21 04:00 Total Bilirubin 0.50 mg/dL (0.2-1.0) 05/03/21 05:38 AST 16 Units/L (15-37) 05/03/21 05:38 ALT 21 Units/L (12-78) 05/03/21 05:38 Alkaline Phosphatase 70 Units/L (46-116) 05/03/21 05:38 Creatine Kinase 55 Units/L (26-192) 05/01/21 09:22 CK-MB (CK-2) 3.5 ng/mL (0-4.0) 05/01/21 09:22 CK/CKMB % Calc 6.4 % (<4) 05/01/21 09:22 Troponin I < 0.02 ng/mL (0-1.5) 05/01/21 09:22 Total Protein 6.3 g/dL (6.4-8.2) L 05/03/21 05:38 Albumin 2.6 g/dL (3.4-5.0) L 05/03/21 05:38 Globulin 3.7 g/dL (2.5-4.5) 05/03/21 05:38 Albumin/Globulin Ratio 0.7 Ratio (1.1-2.1) L 05/03/21 05:38 Specimen Type Catherized urine 05/01/21 03:30 Urine Color Yellow (YELLOW) 05/01/21 03:30 Urine Appearance Hazy (CLEAR) 05/01/21 03:30 Urine pH 5.0 (5.0 - 8.0) 05/01/21 03:30 Ur Specific [place] 1.015 (1.000-1.030) 05/01/21 03:30 Urine Protein 2+ (NEGATIVE) 05/01/21 03:30 Urine Glucose (UA) Negative (NEGATIVE) 05/01/21 03:30 Urine Ketones Negative (NEGATIVE) 05/01/21 03:30 Urine Occult Blood 4+ (NEGATIVE) 05/01/21 03:30 Urine Nitrite Negative (NEGATIVE) 05/01/21 03:30 Urine Bilirubin Negative (NEGATIVE) 05/01/21 03:30 Urine Urobilinogen Normal (NORMAL) 05/01/21 03:30 Ur Leukocyte Esterase Negative (NEGATIVE) 05/01/21 03:30 SARS CoV-2 RNA Rapid AMMON Negative (NEGATIVE) 05/01/21 03:35 - Plan (1) Lobar pneumonia Status: Acute (2) Acute exacerbation of CHF (congestive heart failure) Status: Acute Qualifiers: Heart failure type: unspecified (3) Leg swelling Status: Acute (4) Immobility Status: Acute (5) Confusion Status: Acute (6) Diabetes Status: Chronic Qualifiers: Diabetes mellitus type: type 2 Diabetes mellitus skilled nursing insulin use: with skilled nursing use Diabetes mellitus complication status: with other specified complication Qualified Code(s): E11.69 - Type 2 diabetes mellitus with other s pecified complication; Z79.4 - jail (current) use of insulin (7) History of CVA (cerebrovascular accident) Status: Chronic (8) COPD (chronic obstructive pulmonary disease) Status: Chronic Qualifiers: COPD type: unspecified COPD Qualified Code(s): J44.9 - Chronic obstructive pulmonary disease, unspecified
[2021-05-03] MEDS: LIPITOR TAB 40 MG PO SCH (20:40)
[2021-05-03] MEDS ORDERED: VALIUM PO ONE (23:20)
[2021-05-04] MEDS: DUONEB 0.5 MG/3 MG (3 mL) NEB SCH ×4 (01:15→17:15)
[2021-05-04 05:57] LABS: BASOPHILS % (AUTO) 0.5 % (0.2-1.0); EOSINOPHILS # (AUTO) 0.2 x10^3/uL (0.0-0.2); EOSINOPHILS % (AUTO) 2.1 % (0.9-2.9); HEMOGLOBIN 14.2 g/dL (12.0-16.0); LYMPHOCYTES # (AUTO) 1.9 X10^3/uL (1.3-2.9); LYMPHOCYTES % (AUTO) 19.3 % (21.0-51.0); MEAN CORPUSCULAR HEMOGLOBIN 30.2 pg (27.0-34.0); MEAN CORPUSCULAR VOLUME 91.6 fL (80.0-100.0); MEAN PLATELET VOLUME 9.2 fL (7.4-11.0); MONOCYTES % (AUTO) 10.1 % (0.0-13.0); NEUTROPHILS # (AUTO) 6.6 x10^3/uL (2.2-4.8); PLATELET COUNT 172 X10^3/uL (150.0-450.0); RED BLOOD COUNT 4.69 X10^6/uL (3.5-5.4); RED CELL DISTRIBUTION WIDTH 15.2 % (11.6-16.5); WHITE BLOOD COUNT 9.6 X10^3/uL (3.6-10.0)
[2021-05-04 06:12] LABS: ALANINE AMINOTRANSFERASE 21 Units/L (12-78); ALBUMIN 2.7 g/dL (3.4-5.0); ALKALINE PHOSPHATASE 75 Units/L (46-116); ASPARTATE AMINO TRANSFERASE 16 Units/L (15-37); BLOOD UREA NITROGEN 29 mg/dL (7-18); CALCIUM 8.4 mg/dL (8.5-10.1); CARBON DIOXIDE 32.4 mmol/L (21-32); CHLORIDE 104 mmol/L (98-107); COR CA(FOR HYPOALB) 9.4 mg/dL (8.5-10.1); COR NA(FOR HYPERGLY) 143 mmol/L (136-145); CREATININE 1.05 mg/dL (0.55-1.02); SODIUM 142 mmol/L (136-145); TOTAL PROTEIN 6.4 g/dL (6.4-8.2); eGFR NON BLACK RACES 55 (>60)
--- NOTE | 2021-05-04 06:33 | RAD ---
HISTORYSOB, PNEUMONIA, CHF HX: TIA, CHF, COPD SX: HYSTERECTOMYSTUDYCHEST, 1 [id number]/2021FINDINGSTrachea is midline. There is moderate to severe cardiomegaly unchanged since prior. There has been mild interval improvement of aeration in the left base. There is a persistent radiopacity in the right midlung zone and right lower lobe slightly less denser than prior studyIMPRESSIONPersistent right midlung zone and right lower lobe consolidation, slightly less denser since prior study. Improvement aeration at the left base. No evidence of pneumothorax.Electronically signed by: Bethany Avila (May 04, 2021 06:31:34)
[2021-05-04] MEDS: K-DUR TAB 20 MEQ PO SCH (09:15)
[2021-05-04] MEDS: ASPIRIN EC 81 MG PO SCH (09:15)
[2021-05-04] MEDS: LOVENOX INJ 30 MG SYR SC SCH (09:15)
[2021-05-04] MEDS: GLUCOPHAGE XR 24-HR PO SCH (09:15)
[2021-05-04] MEDS: NICOTINE PATCH TD SCH (09:15)
[2021-05-04] MEDS: LASIX IVP SCH (09:15)
[2021-05-04] MEDS: VSL#3 PO SCH (09:16)
[2021-05-04] MEDS: TOPROL XL PO SCH (09:16)
[2021-05-04] MEDS: ROBITUSSIN DM PO SCH ×4 (09:16→20:26)
[2021-05-04] MEDS: LIPITOR TAB 40 MG PO SCH (20:26)
[2021-05-04] MEDS: LEVAQUIN PREMIX IV 750 MG 750 MG/150 ML BAG IV SCH (20:26)
[2021-05-05] MEDS: DUONEB 0.5 MG/3 MG (3 mL) NEB SCH ×4 (00:23→17:15)
[2021-05-05 06:13] LABS: BASOPHILS % (AUTO) 0.3 % (0.2-1.0); EOSINOPHILS # (AUTO) 0.1 x10^3/uL (0.0-0.2); EOSINOPHILS % (AUTO) 1.5 % (0.9-2.9); HEMATOCRIT 44.2 % (36.0-47.0); HEMOGLOBIN 14.5 g/dL (12.0-16.0); LYMPHOCYTES # (AUTO) 1.3 X10^3/uL (1.3-2.9); LYMPHOCYTES % (AUTO) 16.6 % (21.0-51.0); MEAN CORPUSCULAR HEMOGLOBIN 29.6 pg (27.0-34.0); MEAN CORPUSCULAR HGB CONC 32.8 g/dL (33.0-35.0); MEAN CORPUSCULAR VOLUME 90.3 fL (80.0-100.0); MEAN PLATELET VOLUME 9.5 fL (7.4-11.0); MONOCYTES # (AUTO) 0.8 x10^3/uL (0.3-0.8); MONOCYTES % (AUTO) 9.8 % (0.0-13.0); NEUTROPHILS # (AUTO) 5.7 x10^3/uL (2.2-4.8); NEUTROPHILS % (AUTO) 71.8 % (42.0-75.0); PLATELET COUNT 188 X10^3/uL (150.0-450.0); RED BLOOD COUNT 4.89 X10^6/uL (3.5-5.4); RED CELL DISTRIBUTION WIDTH 15.3 % (11.6-16.5); WHITE BLOOD COUNT 7.9 X10^3/uL (3.6-10.0)
--- NOTE | 2021-05-05 06:23 | RAD ---
HISTORYShortness of breathSTUDYChest AP [id number]/2021FINDINGSThe heart remains enlarged. No definite congestive heart failure is noted. Increasing density is present in the right lower lung field which may indicate worsening consolidation or associated right pleural effusion. The right upper lung field and left upper lung wagner remain clear. There is increased density in the retrocardiac area of the left lower lobe obscuring left hemidiaphragm which could be on the basis of pleural fluid, consolidation, or atelectasis. Bony thorax is unremarkable.IMPRESSIONIncreasing density in the right lower hemithorax which may indicate worsening consolidation or developing right pleural effusionPersistent increased density retrocardiac area of the left lower lobe. Differential diagnosis as aboveCardiomegaly without congestive heart failureElectronically signed by: MIKE LOPEZ (May 05, 2021 06:21:45)
[2021-05-05 06:44] LABS: ALANINE AMINOTRANSFERASE 18 Units/L (12-78); ALBUMIN 2.5 g/dL (3.4-5.0); ALKALINE PHOSPHATASE 74 Units/L (46-116); ASPARTATE AMINO TRANSFERASE 16 Units/L (15-37); BLOOD UREA NITROGEN 32 mg/dL (7-18); CALCIUM 8.3 mg/dL (8.5-10.1); CARBON DIOXIDE 32.5 mmol/L (21-32); CHLORIDE 102 mmol/L (98-107); COR CA(FOR HYPOALB) 9.5 mg/dL (8.5-10.1); COR NA(FOR HYPERGLY) 140 mmol/L (136-145); CREATININE 1.02 mg/dL (0.55-1.02); SODIUM 139 mmol/L (136-145); TOTAL PROTEIN 6.4 g/dL (6.4-8.2); eGFR NON BLACK RACES 56 (>60)
[2021-05-05] MEDS: LASIX IVP SCH (08:15)
[2021-05-05] MEDS: K-DUR TAB 20 MEQ PO SCH (08:17)
[2021-05-05] MEDS: GLUCOPHAGE XR 24-HR PO SCH (08:17)
[2021-05-05] MEDS: ASPIRIN EC 81 MG PO SCH (08:17)
[2021-05-05] MEDS: NICOTINE PATCH TD SCH (08:18)
[2021-05-05] MEDS: TOPROL XL PO SCH (08:19)
[2021-05-05] MEDS: ROBITUSSIN DM PO SCH ×4 (08:19→21:00)
[2021-05-05] MEDS: VSL#3 PO SCH (08:19)
[2021-05-05] MEDS ORDERED: LASIX IVP SCH (09:00)
[2021-05-05] MEDS ORDERED: GLUCOPHAGE XR 24-HR PO SCH (09:00)
[2021-05-05] MEDS: LOVENOX INJ 30 MG SYR SC SCH (09:25)
[2021-05-05] MEDS ORDERED: GLUCOPHAGE XR 24-HR PO NR (10:00)
[2021-05-05] MEDS: LASIX PO SCH ×2 (11:16→16:23)
[2021-05-05] MEDS: NovoLIN R (or HumuLIN R) SC PRN (16:41)
[2021-05-05] MEDS: LIPITOR TAB 40 MG PO SCH (21:00)
[2021-05-06] MEDS: DUONEB 0.5 MG/3 MG (3 mL) NEB SCH ×3 (00:09→12:30)
--- NOTE | 2021-05-06 05:29 | RAD ---
PROCEDURE: Chest X-ray 1 View .HISTORY: Dyspnea.TECHNIQUE: AP view .COMPARISON: 05/05/2021.TECHNICAL QUALITY: Satisfactory .FINDINGS:Unchanged start size upper limits of normal.Normal central vascularity.Continued bibasilar pneumonia greatest on the right. No definite pleural fluid and no pneumothorax.IMPRESSION:Unchanged bibasilar pneumonia.Electronically signed by: Marty Vale (May 06, 2021 05:27:53)
[2021-05-06 05:39] LABS: BASOPHILS % (AUTO) 0.5 % (0.2-1.0); EOSINOPHILS # (AUTO) 0.2 x10^3/uL (0.0-0.2); EOSINOPHILS % (AUTO) 1.9 % (0.9-2.9); HEMATOCRIT 42.3 % (36.0-47.0); HEMOGLOBIN 14.1 g/dL (12.0-16.0); LYMPHOCYTES # (AUTO) 1.3 X10^3/uL (1.3-2.9); LYMPHOCYTES % (AUTO) 15.7 % (21.0-51.0); MEAN CORPUSCULAR HEMOGLOBIN 29.9 pg (27.0-34.0); MEAN CORPUSCULAR HGB CONC 33.4 g/dL (33.0-35.0); MEAN CORPUSCULAR VOLUME 89.5 fL (80.0-100.0); MEAN PLATELET VOLUME 8.6 fL (7.4-11.0); MONOCYTES # (AUTO) 0.7 x10^3/uL (0.3-0.8); MONOCYTES % (AUTO) 8.8 % (0.0-13.0); NEUTROPHILS # (AUTO) 6.2 x10^3/uL (2.2-4.8); NEUTROPHILS % (AUTO) 73.1 % (42.0-75.0); PLATELET COUNT 193 X10^3/uL (150.0-450.0); RED BLOOD COUNT 4.73 X10^6/uL (3.5-5.4); RED CELL DISTRIBUTION WIDTH 15.1 % (11.6-16.5); WHITE BLOOD COUNT 8.4 X10^3/uL (3.6-10.0)
[2021-05-06 05:51] LABS: ALANINE AMINOTRANSFERASE 21 Units/L (12-78); ALBUMIN 2.6 g/dL (3.4-5.0); ALKALINE PHOSPHATASE 78 Units/L (46-116); ASPARTATE AMINO TRANSFERASE 20 Units/L (15-37); BLOOD UREA NITROGEN 34 mg/dL (7-18); CALCIUM 8.3 mg/dL (8.5-10.1); CARBON DIOXIDE 35.2 mmol/L (21-32); CHLORIDE 101 mmol/L (98-107); COR CA(FOR HYPOALB) 9.4 mg/dL (8.5-10.1); COR NA(FOR HYPERGLY) 140 mmol/L (136-145); CREATININE 1.07 mg/dL (0.55-1.02); SODIUM 140 mmol/L (136-145); TOTAL PROTEIN 6.4 g/dL (6.4-8.2); eGFR NON BLACK RACES 53 (>60)
[2021-05-06] MEDS: LOVENOX INJ 30 MG SYR SC SCH (08:42)
[2021-05-06] MEDS: ROBITUSSIN DM PO SCH ×2 (08:42→12:52)
[2021-05-06] MEDS: ASPIRIN EC 81 MG PO SCH (08:42)
[2021-05-06] MEDS: TOPROL XL PO SCH (08:42)
[2021-05-06] MEDS: VSL#3 PO SCH (08:43)
[2021-05-06] MEDS ORDERED: GLUCOPHAGE XR 24-HR PO SCH (09:00)
[2021-05-06] MEDS: NICOTINE PATCH TD SCH (09:10)
[2021-05-06] MEDS: LASIX PO SCH (09:10)
[2021-05-06 12:08] VITALS: BP 116/53
--- NOTE | 2021-05-06 13:14 | PCM.PROG ---
Progress Note Progress Note for Day of Date of Exam: 05/05/21 Subjective Subjective: Patient seen at bedside, no events overnight. She states she feels better. She is still on 2L O2. She still has the herrera in. She did work with PT, recommended SNF. Patient is willing to go for rehab. Patient reports good appetite. Labs and imaging reviewed Plan: will discuss with CM about rehab placement. Continue lasix, will switch to 40 mg BID PO. Monitor UOP. Remove herrera. Continue levaquin. Continue PT/OT as tolerated, discussed to sit on the chair. Monitor AM labs/imaging. Past Medical Family Social History Past Med/Fam/Surg Hx: No changes since H&P and Changes noted (describe) Allergies: Allergies No Known Drug Allergies Allergy (Verified 02/28/21 23:04) Review of Systems ROS: No change since H&P Vital Signs and I&O's Vital Signs: Temperature 98.1 F Pulse Rate [Left Radial] 83 Pulse Rate 84 Respiratory Rate 18 Blood Pressure [Left Arm] 116/53 Blood Pressure 138/85 O2 Sat by Pulse Oximetry 98 Intake and Output: Intake & Output 05/03/21 05/04/21 05/05/21 05/06/21 23:59 23:59 23:59 23:59 Intake Total 790 / 790 1712 / 1712 772 / 772 490 / 490 Output Total 2800 / 2800 2500 / 2500 1950 / 1950 650 / 650 Balance -2009 / -2009 -788 / -788 -1178 / -1178 -160 / -160 Physical Exam Oriented: Normal Eyes: Normal Ear: Normal Nose: Normal Throat: Normal Respiratory: Generalized and Diminished Cardiovascular: Normal and Edema (improved LE edema ) Auscultation: Bowel Sounds: Normal Tenderness: Normal Skin: Wound Musculoskeletal: Normal Psychiatric: Normal Mood Description: Calm Affect: Normal Speech Pattern: Clear and Appropriate Laboratory and Diagnostics Result Diagrams: 05/06/21 05:24 05/06/21 05:24 Labs: 05/01/21 03:49 Blood Blood Culture - Final 05/01/21 03:42 Blood Blood Culture - Final 05/01/21 03:30 Urine,Clean Catch Urine Culture - Final Laboratory WBC 8.4 X10^3/uL (3.6-10.0) 05/06/21 05:24 RBC 4.73 X10^6/uL (3.5-5.4) 05/06/21 05:24 Hgb 14.1 g/dL (12.0-16.0) 05/06/21 05:24 Hct 42.3 % (36.0-47.0) 05/06/21 05:24 MCV 89.5 fL (80.0-100.0) 05/06/21 05:24 MCH 29.9 pg (27.0-34.0) 05/06/21 05:24 MCHC 33.4 g/dL (33.0-35.0) 05/06/21 05:24 RDW 15.1 % (11.6-16.5) 05/06/21 05:24 Plt Count 193 X10^3/uL (150.0-450.0) 05/06/21 05:24 MPV 8.6 fL (7.4-11.0) 05/06/21 05:24 Neut % (Auto) 73.1 % (42.0-75.0) 05/06/21 05:24 Lymph % (Auto) 15.7 % (21.0-51.0) L 05/06/21 05:24 [place] % (Auto) 8.8 % (0.0-13.0) 05/06/21 05:24 Eos % (Auto) 1.9 % (0.9-2.9) 05/06/21 05:24 Baso % (Auto) 0.5 % (0.2-1.0) 05/06/21 05:24 Neut # (Auto) 6.2 x10^3/uL (2.2-4.8) H 05/06/21 05:24 Lymph # (Auto) 1.3 X10^3/uL (1.3-2.9) 05/06/21 05:24 [place] # (Auto) 0.7 x10^3/uL (0.3-0.8) 05/06/21 05:24 Eos # (Auto) 0.2 x10^3/uL (0.0-0.2) 05/06/21 05:24 Baso # (Auto) 0.0 X10^3/uL (0.0-0.1) 05/06/21 05:24 Absolute Nucleated RBC 0.0 /100WBC 05/06/21 05:24 Sample Site Rr 05/01/21 00:57 ABG pH 7.460 (7.35-7.45) H 05/01/21 00:57 ABG pCO2 32.0 mmHg (35.0-45.0) L 05/01/21 00:57 ABG pO2 90.0 mmHg (80.0-100.0) 05/01/21 00:57 ABG HCO3 22.8 mmol/L (22-26) 05/01/21 00:57 ABG O2 Saturation 97.0 % (90-100) 05/01/21 00:57 ABG Base Excess -0.4 mmol/L (-2.0-2.0) 05/01/21 00:57 Cheko Test Pos 05/01/21 00:57 A-a Gradient 70.0 mmHg 05/01/21 00:57 FiO2 28.0 05/01/21 00:57 Blood Gas Comments Marv well sw 05/01/21 00:57 Sodium 140 mmol/L (136-145) 05/06/21 05:24 Corrected Sodium 140 mmol/L (136-145) 05/06/21 05:24 Potassium 4.0 mmol/L (3.5-5.1) 05/06/21 05:24 Chloride 101 mmol/L (98-107) 05/06/21 05:24 Carbon Dioxide 35.2 mmol/L (21-32) H 05/06/21 05:24 BUN 34 mg/dL (7-18) H 05/06/21 05:24 Creatinine 1.07 mg/dL (0.55-1.02) H 05/06/21 05:24 Est GFR (MDRD) Af Amer > 60 (>60) 05/06/21 05:24 Est GFR (MDRD) Non-Af 53 (>60) L 05/06/21 05:24 Glucose 119 mg/dL (65-99) H 05/06/21 05:24 POC Glucose (mg/dL) 112 mg/dL (65-99) H 05/06/21 11:26 Calcium 8.3 mg/dL (8.5-10.1) L 05/06/21 05:24 Corrected Calcium 9.4 mg/dL (8.5-10.1) 05/06/21 05:24 Magnesium 2.3 mg/dL (1.7-2.9) 05/02/21 04:00 Total Bilirubin 0.40 mg/dL (0.2-1.0) 05/06/21 05:24 AST 20 Units/L (15-37) 05/06/21 05:24 ALT 21 Units/L (12-78) 05/06/21 05:24 Alkaline Phosphatase 78 Units/L (46-116) 05/06/21 05:24 Creatine Kinase 55 Units/L (26-192) 05/01/21 09:22 CK-MB (CK-2) 3.5 ng/mL (0-4.0) 05/01/21 09:22 CK/CKMB % Calc 6.4 % (<4) 05/01/21 09:22 Troponin I < 0.02 ng/mL (0-1.5) 05/01/21 09:22 Total Protein 6.4 g/dL (6.4-8.2) 05/06/21 05:24 Albumin 2.6 g/dL (3.4-5.0) L 05/06/21 05:24 Globulin 3.8 g/dL (2.5-4.5) 05/06/21 05:24 Albumin/Globulin Ratio 0.7 Ratio (1.1-2.1) L 05/06/21 05:24 Specimen Type Catherized urine 05/01/21 03:30 Urine Color Yellow (YELLOW) 05/01/21 03:30 Urine Appearance Hazy (CLEAR) 05/01/21 03:30 Urine pH 5.0 (5.0 - 8.0) 05/01/21 03:30 Ur Specific [place] 1.015 (1.000-1.030) 05/01/21 03:30 Urine Protein 2+ (NEGATIVE) 05/01/21 03:30 Urine Glucose (UA) Negative (NEGATIVE) 05/01/21 03:30 Urine Ketones Negative (NEGATIVE) 05/01/21 03:30 Urine Occult Blood 4+ (NEGATIVE) 05/01/21 03:30 Urine Nitrite Negative (NEGATIVE) 05/01/21 03:30 Urine Bilirubin Negative (NEGATIVE) 05/01/21 03:30 Urine Urobilinogen Normal (NORMAL) 05/01/21 03:30 Ur Leukocyte Esterase Negative (NEGATIVE) 05/01/21 03:30 SARS CoV-2 RNA Rapid AMMON Negative (NEGATIVE) 05/01/21 03:35 Plan (1) Lobar pneumonia: Status: Acute (2) Acute exacerbation of CHF (congestive heart failure): Status: Acute Qualifiers: Heart failure type: unspecified (3) Leg swelling: Status: Acute (4) Immobility: Status: Acute (5) Confusion: Status: Acute (6) Diabetes: Status: Chronic Qualifiers: Diabetes mellitus complication status: with other specified complication Diabetes mellitus nursing home insulin use: with ad terminal makeup operator use Diabetes mellitus type: type 2 Qualified Code(s): E11.69 - Type 2 diabetes mellitus with other specified complication; Z79.4 - keno terminal operator (current) use of insulin (7) History of CVA (cerebrovascular accident): Status: Chronic (8) COPD (chronic obstructive pulmonary disease): Status: Chronic Qualifiers: COPD type: unspecified COPD Qualified Code(s): J44.9 - Chronic obstructive pulmonary disease, unspecified
--- NOTE | 2021-05-06 16:32 | W.DIS.FURT ---
Summary of Discharge Admission Diagnosis Patient Problems (Updated 05/03/21 @ 10:41 by Toby Lacy) History of CVA (cerebrovascular accident) (Chronic) Z86.73 Confusion (Acute) R41.0 Diabetes (Chronic) E11.9 Immobility (Acute) Z74.09 Leg swelling (Acute) M79.89 Acute exacerbation of CHF (congestive heart failure) (Acute) I50.9 Dyspnea (Acute) R06.00 COPD (chronic obstructive pulmonary disease) (Chronic) J44.9 Congestive heart failure (Acute) I50.9 Lobar pneumonia (Acute) J18.1 Vital Signs: Vital Signs (72 hours) 05/03/21 17:20 05/03/21 20:00 05/04/21 00:00 Temperature 98.5 F 98.1 F Pulse Rate 86 Pulse Rate [Left Radial] 92 H 90 Respiratory Rate 23 24 Blood Pressure [Left Arm] 137/60 118/63 O2 Sat by Pulse Oximetry 98 96 96 05/04/21 01:15 05/04/21 04:00 05/04/21 07:59 Temperature 97.7 F 97.8 F Pulse Rate 93 H Pulse Rate [Left Radial] 85 88 Respiratory Rate 24 20 Blood Pressure [Left Arm] 128/58 156/68 O2 Sat by Pulse Oximetry 96 95 96 05/04/21 12:00 05/04/21 16:00 05/04/21 20:00 Temperature 97.9 F 98.1 F 99.2 F Pulse Rate Pulse Rate [Left Radial] 82 90 97 H Respiratory Rate 20 20 24 Blood Pressure [Left Arm] 130/60 128/59 127/65 O2 Sat by Pulse Oximetry 98 93 L 96 05/05/21 00:00 05/05/21 04:00 05/05/21 07:57 Temperature 97.7 F 97.7 F 97.6 F Pulse Rate Pulse Rate [Left Radial] 86 83 88 Respiratory Rate 24 23 20 Blood Pressure [Left Arm] 117/58 126/83 129/70 O2 Sat by Pulse Oximetry 97 94 L 100 05/05/21 12:00 05/05/21 12:01 05/05/21 16:00 Temperature 98.2 F 97.9 F Pulse Rate 88 Pulse Rate [Left Radial] 88 88 Respiratory Rate 20 20 Blood Pressure [Left Arm] 132/61 134/62 O2 Sat by Pulse Oximetry 97 97 99 05/05/21 17:15 05/05/21 20:00 05/06/21 00:00 Temperature 98.0 F 98.6 F Pulse Rate 84 Pulse Rate [Left Radial] 90 92 H Respiratory Rate 21 22 Blood Pressure [Left Arm] 130/61 130/58 O2 Sat by Pulse Oximetry 98 99 94 L 05/06/21 04:00 05/06/21 08:00 05/06/21 12:00 Temperature 97.9 F 97.8 F 98.1 F Pulse Rate Pulse Rate [Left Radial] 91 H 89 83 Respiratory Rate 22 24 18 Blood Pressure [Left Arm] 138/63 130/59 116/53 O2 Sat by Pulse Oximetry 96 98 98 05/06/21 12:30 Temperature Pulse Rate 86 Pulse Rate [Left Radial] Respiratory Rate Blood Pressure [Left Arm] O2 Sat by Pulse Oximetry 98 Labs: Laboratory Last Values WBC 8.4 X10^3/uL (3.6-10.0) 05/06/21 05:24 RBC 4.73 X10^6/uL (3.5-5.4) 05/06/21 05:24 Hgb 14.1 g/dL (12.0-16.0) 05/06/21 05:24 Hct 42.3 % (36.0-47.0) 05/06/21 05:24 MCV 89.5 fL (80.0-100.0) 05/06/21 05:24 MCH 29.9 pg (27.0-34.0) 05/06/21 05:24 MCHC 33.4 g/dL (33.0-35.0) 05/06/21 05:24 RDW 15.1 % (11.6-16.5) 05/06/21 05:24 Plt Count 193 X10^3/uL (150.0-450.0) 05/06/21 05:24 MPV 8.6 fL (7.4-11.0) 05/06/21 05:24 Neut % (Auto) 73.1 % (42.0-75.0) 05/06/21 05:24 Lymph % (Auto) 15.7 % (21.0-51.0) L 05/06/21 05:24 [place] % (Auto) 8.8 % (0.0-13.0) 05/06/21 05:24 Eos % (Auto) 1.9 % (0.9-2.9) 05/06/21 05:24 Baso % (Auto) 0.5 % (0.2-1.0) 05/06/21 05:24 Neut # (Auto) 6.2 x10^3/uL (2.2-4.8) H 05/06/21 05:24 Lymph # (Auto) 1.3 X10^3/uL (1.3-2.9) 05/06/21 05:24 [place] # (Auto) 0.7 x10^3/uL (0.3-0.8) 05/06/21 05:24 Eos # (Auto) 0.2 x10^3/uL (0.0-0.2) 05/06/21 05:24 Baso # (Auto) 0.0 X10^3/uL (0.0-0.1) 05/06/21 05:24 Absolute Nucleated RBC 0.0 /100WBC 05/06/21 05:24 Sample Site Rr 05/01/21 00:57 ABG pH 7.460 (7.35-7.45) H 05/01/21 00:57 ABG pCO2 32.0 mmHg (35.0-45.0) L 05/01/21 00:57 ABG pO2 90.0 mmHg (80.0-100.0) 05/01/21 00:57 ABG HCO3 22.8 mmol/L (22-26) 05/01/21 00:57 ABG O2 Saturation 97.0 % (90-100) 05/01/21 00:57 ABG Base Excess -0.4 mmol/L (-2.0-2.0) 05/01/21 00:57 Cheko Test Pos 05/01/21 00:57 A-a Gradient 70.0 mmHg 05/01/21 00:57 FiO2 28.0 05/01/21 00:57 Blood Gas Comments Marv well sw 05/01/21 00:57 Sodium 140 mmol/L (136-145) 05/06/21 05:24 Corrected Sodium 140 mmol/L (136-145) 05/06/21 05:24 Potassium 4.0 mmol/L (3.5-5.1) 05/06/21 05:24 Chloride 101 mmol/L (98-107) 05/06/21 05:24 Carbon Dioxide 35.2 mmol/L (21-32) H 05/06/21 05:24 BUN 34 mg/dL (7-18) H 05/06/21 05:24 Creatinine 1.07 mg/dL (0.55-1.02) H 05/06/21 05:24 Est GFR (MDRD) Af Amer > 60 (>60) 05/06/21 05:24 Est GFR (MDRD) Non-Af 53 (>60) L 05/06/21 05:24 Glucose 119 mg/dL (65-99) H 05/06/21 05:24 POC Glucose (mg/dL) 112 mg/dL (65-99) H 05/06/21 11:26 Calcium 8.3 mg/dL (8.5-10.1) L 05/06/21 05:24 Corrected Calcium 9.4 mg/dL (8.5-10.1) 05/06/21 05:24 Magnesium 2.3 mg/dL (1.7-2.9) 05/02/21 04:00 Total Bilirubin 0.40 mg/dL (0.2-1.0) 05/06/21 05:24 AST 20 Units/L (15-37) 05/06/21 05:24 ALT 21 Units/L (12-78) 05/06/21 05:24 Alkaline Phosphatase 78 Units/L (46-116) 05/06/21 05:24 Creatine Kinase 55 Units/L (26-192) 05/01/21 09:22 CK-MB (CK-2) 3.5 ng/mL (0-4.0) 05/01/21 09:22 CK/CKMB % Calc 6.4 % (<4) 05/01/21 09:22 Troponin I < 0.02 ng/mL (0-1.5) 05/01/21 09:22 Total Protein 6.4 g/dL (6.4-8.2) 05/06/21 05:24 Albumin 2.6 g/dL (3.4-5.0) L 05/06/21 05:24 Globulin 3.8 g/dL (2.5-4.5) 05/06/21 05:24 Albumin/Globulin Ratio 0.7 Ratio (1.1-2.1) L 05/06/21 05:24 Specimen Type Catherized urine 05/01/21 03:30 Urine Color Yellow (YELLOW) 05/01/21 03:30 Urine Appearance Hazy (CLEAR) 05/01/21 03:30 Urine pH 5.0 (5.0 - 8.0) 05/01/21 03:30 Ur Specific [place] 1.015 (1.000-1.030) 05/01/21 03:30 Urine Protein 2+ (NEGATIVE) 05/01/21 03:30 Urine Glucose (UA) Negative (NEGATIVE) 05/01/21 03:30 Urine Ketones Negative (NEGATIVE) 05/01/21 03:30 Urine Occult Blood 4+ (NEGATIVE) 05/01/21 03:30 Urine Nitrite Negative (NEGATIVE) 05/01/21 03:30 Urine Bilirubin Negative (NEGATIVE) 05/01/21 03:30 Urine Urobilinogen Normal (NORMAL) 05/01/21 03:30 Ur Leukocyte Esterase Negative (NEGATIVE) 05/01/21 03:30 SARS CoV-2 RNA Rapid AMMON Negative (NEGATIVE) 05/01/21 03:35 Reason For Visit: PNEUMONIA, AND CHF Discharge Diagnosis All Active Problems (Updated 05/03/21 @ 10:41 by Toby Lacy) History of CVA (cerebrovascular accident) (Chronic) Confusion (Acute) Diabetes (Chronic) Immobility (Acute) Leg swelling (Acute) Acute exacerbation of CHF (congestive heart failure) (Acute) Dyspnea (Acute) COPD (chronic obstructive pulmonary disease) (Chronic) Congestive heart failure (Acute) Lobar pneumonia (Acute) Plan of Treatment: Continue with present treatment and follow up plan. Pt is to keep follow up appointment as instructed and take medications as ordered. Discharge Medications Discharge Medications: No Known Drug Allergies Allergy (Verified 02/28/21 23:04) CONTINUE taking the following medications furosemide 40 mg PO DAILY 05/01/21 [History] pantoprazole 40 mg PO DAILY 05/01/21 [History] New Prescriptions aspirin 81 mg PO DAILY 30 Days #30 tab 05/05/21 [Rx] atorvastatin 40 mg PO HS 30 Days #30 tab 05/05/21 [Rx] cholecalciferol (vitamin D3) [Vitamin D3] 125 mcg PO DAILY 30 Days #30 tab 05/05/21 [Rx] furosemide 40 mg PO BID 30 Days #60 tab 05/05/21 [Rx] ipratropium-albuterol 3 ml NEB Q6RESP 30 Days #60 each 05/05/21 [Rx] levofloxacin 750 mg PO Q24H 3 Days #3 tab 05/05/21 [Rx] metformin 1,000 mg PO DAILY 30 Days #30 tab 05/05/21 [Rx] metoprolol succinate 25 mg PO DAILY 30 Days #30 tab 05/05/21 [Rx] nebulizers #1 ea 05/05/21 [Rx] Discharge Plan Discharge Plan Patient Disposition: XFER SNF Condition: Stable Health Concerns: Post Hospitalization: new medications and changes needed to prevent readmission or further decline. Pt educated and given instructions on all concerns. Plan of Treatment: Continue with present treatment and follow up plan. Pt is to keep follow up appointment as instructed and take medications as ordered. Prescription drug monitoring program results: PDMP reviewed and no concerns identified Prescriptions: New ipratropium-albuterol 0.5 mg-3 mg(2.5 mg base)/3 mL Solution For Nebulization 3 ml NEB Q6RESP 30 Days Qty: 60 RF: 0 aspirin 81 mg Tablet,Delayed Release (Dr/Ec) 81 mg PO DAILY 30 Days Qty: 30 RF: 1 metformin 1,000 mg tablet extended release 24hr 1,000 mg PO DAILY 30 Days Qty: 30 RF: 1 atorvastatin 40 mg Tablet 40 mg PO HS 30 Days Qty: 30 RF: 1 metoprolol succinate 25 mg Tablet Extended Release 24 Hr 25 mg PO DAILY 30 Days Qty: 30 RF: 0 furosemide 40 mg tablet 40 mg PO BID 30 Days Qty: 60 RF: 1 levofloxacin 750 mg tablet 750 mg PO Q24H 3 Days Qty: 3 RF: 0 (DME) nebulizers Misc See Rx Instructions .ROUTE .MEDSUPPLY Qty: 1 RF: 0 cholecalciferol (vitamin D3) [Vitamin D3] 125 mcg (5,000 unit) tablet 125 mcg PO DAILY 30 Days Qty: 30 RF: 1 Continued pantoprazole 40 mg Tablet,Delayed Release (Dr/Ec) 40 mg PO DAILY RF: 0 Discontinued furosemide 40 mg Tablet 40 mg PO DAILY RF: 0 Orders to Discharge Patient Discharge Orders: Discharge (Routine); Ordered 05/06/21 Ordered By: Char Araujo Follow ups/Referrals Follow ups/Referrals: Char Araujo [Primary Care Provider] - 2 WEEKS (Follow up after rehab ) Instructions Activity Restrictions/Additional Instructions: New medications Diabetes: metformin 1000 mg daily , low carb diet Congestive heart failure: metoprolol succinate 25 mg daily, aspirin 81 mg daily, atorvastatin 40 mg daily and furosmide 40 mg twice a day. Need to follow up with cardiology. Stand Alone Forms: Excuse From Work or School, Social Distancing
== END 2021-05-06 14:25 | DRG 195 ==
LOC: SUPCPDRO → MED/SURG 00:31 → ER 00:31 → MED/SURG 05:07
PROVIDERS: ADMIT Family Medicine; ATTEND Internal Medicine
DX: E11.65 Type 2 diabetes mellitus with hyperglycemia; J18.0 Bronchopneumonia, unspecified organism; J44.9 Chronic obstructive pulmonary disease, unspecified; Z86.73 Personal history of transient ischemic attack (TIA), and cerebral infarction without residual deficits; R41.0 Disorientation, unspecified; I50.9 Heart failure, unspecified; Z79.4 Long term (current) use of insulin; Z20.822 Contact with and (suspected) exposure to COVID-19; R26.89 Other abnormalities of gait and mobility